=== PATIENT | female | born 1975 | race Two or more races ===

== ENCOUNTER 2024-03-08 08:47 | Emergency (ER) | payer MEDICAID, OTHER ==
[~2024-03-08] VITALS: Ht 160 cm; Wt 105.0 kg
[2024-03-08 09:41] VITALS: BP 122/62; PULSE 82; RESP 18; TEMP 98.2; O2SAT 98
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
[2024-03-08] MEDS: KETOROLAC TROMETH 60MG/2ML VIAL IM ONE (10:14)
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
--- NOTE | 2024-03-08 10:34 | DVH ---
CLINICAL INDICATION: hip pain TECHNIQUE: 1 radiographic views of the pelvis and 2 views of the right hip were obtained. Comparison: None FINDINGS/IMPRESSION: There is no evidence of acute fracture or dislocation. The visualized joint space is well maintained. The alignment is anatomical. There is no radiopaque foreign body.
[2024-03-08] MEDS ORDERED: CYCL-837 PO (10:44)
[2024-03-08] MEDS ORDERED: LIDO5PAD12 EX (10:44)
[2024-03-08] MEDS ORDERED: IBUP-1454 PO (10:44)
== END 2024-03-08 10:55 | disposition home or self-care (01) ==
LOC: ER 08:47
DX: S70.01XA Contusion of right hip, initial encounter (principal); S99.911A Unspecified injury of right ankle, initial encounter; M77.31 Calcaneal spur, right foot; V43.62XA Car passenger injured in collision with other type car in traffic accident, initial encounter; Y93.89 Activity, other specified; Y92.488 Other paved roadways as the place of occurrence of the external cause; Y99.8 Other external cause status
CPT/HCPCS: 73502; 73610; 73630; 96372; 99284; J1885

== ENCOUNTER 2024-05-13 12:58 | Inpatient (IN) | payer MEDICAID ==
[~2024-05-13] VITALS: Ht 160 cm; Wt 105.9 kg
[~2024-05-13 12:58] MED LIST: CYCL-837 PO; IBUP-1454 PO; LIDO5PAD12 EX
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
--- NOTE | 2024-05-13 13:16 | ECG ---
[facility] Test Date: 2024-05-13 Test Time: 13:15:17 Pat Name: ADAM PINEDO Department: ER Room: [address] [place] [address] Gender: F [employer]: ANDREEA : 1975 Requested By: VALORIE IBRAHIM Order Number: [id number] Reading MD: Malcom Brasher Measurements Intervals [place] Rate: 80 P: 27 [place]: 172 QRS: -14 QRSD: 91 T: -1 QT: 370 QTc: 427 Interpretive Statements Sinus rhythm Left atrial enlargement Low voltage, precordial leads Abnormal R-wave progression, late transition Borderline T abnormalities, diffuse leads Electronically Signed On 05-14-2024 17:45:30 PDT by Malcom Brasher Please click the below link to view image of tracing.
[2024-05-13 13:43] LABS: Basophils # (auto) 0.1 10 ^3/uL (0-0.2); Basophils % (auto) 0.8 % (0.0-2.0); Eosinophils # (auto) 0.2 10 ^3/uL (0-0.8); Eosinophils % (auto) 2.2 % (0.0-7.0); Hemoglobin 14.1 g/dL (12.2-16.2); Lymphocytes # (auto) 2.2 10 ^3/uL (0.4-5.4); Lymphocytes % (auto) 25.4 % (10.0-50.0); Mean Corpuscular Hgb Conc. 33.6 g/dL (32.0-36.0); Mean Corpuscular Volume 80.5 fL (80.0-100.0); Monocytes # (auto) 0.4 10 ^3/uL (0-1.3); Monocytes % (auto) 4.8 % (0.0-12.0); Neutrophils # (auto) 5.7 10 ^3/uL (1.6-8.6); Neutrophils % (auto) 66.8 % (37.0-80.0); Nucleated Red Blood Cells % 0.1 %; Platelet Count (auto) 328 10^3/uL (140-450); Red Blood Cells 5.22 10^6/uL (4.0-5.20); Red Cell Distribution Width 16.2 % (11.8-14.3); White Blood Cell 8.5 10^3/uL (4.4-10.8)
--- NOTE | 2024-05-13 13:49 | DVH ---
EXAM: XY CHEST PORTABLE Indication: pain Technique: Single frontal view of the chest was obtained Comparison: None FINDINGS: Lines and Tubes: None Lungs: No focal consolidation. Pleura: No effusion. No pneumothorax. Cardiomediastinal contours: Unremarkable Bones: No acute osseous abnormality. IMPRESSION: No acute cardiopulmonary disease.
[2024-05-13 13:54] LABS: Urine Bacteria None Seen /hpf (None Seen)
[2024-05-13 13:57] LABS: Alanine Aminotransferase 18 U/L (7-40); Albumin 4.5 g/dL (3.2-4.8); Anion Gap 9 (5-15); BUN/Creatinine Ratio 19.1 (10.0-20.0); Blood Urea Nitrogen 13 mg/dL (9-23); Calcium 10.4 mg/dL (8.7-10.4); Carbon Dioxide 29 mmol/L (20-31); Chloride 98 mmol/L (98-107); Lipase 20 U/L (12-53); Potassium 4.2 mmol/L (3.5-5.1); Sodium 136 mmol/L (136-145); Total Protein 7.1 g/dL (5.7-8.2)
[2024-05-13 13:58] LABS: Bilirubin, Total 0.5 mg/dL (0.2-1.0)
[2024-05-13 13:59] LABS: Alkaline Phosphatase 135 U/L (46-116); Aspartate Aminotransferase 11 U/L (13-40); Glucose 342 mg/dL (74-106); Magnesium 1.5 mg/dL (1.6-2.6)
[2024-05-13 14:03] LABS: Lactic Acid w/Reflex 2.2 mmol/L (0.4-2.0)
[2024-05-13 14:15] LABS: Urine Blood TRACE /uL (Negative); Urine Clarity Turbid (Clear); Urine Color Light-Yellow (Yellow); Urine Mucus FEW (None Seen); Urine Protein, UAD Negative (Negative); Urine Specific Gravity 1.013 (1.001-1.035); Urine Squamous Epithelial Cell FEW /hpf (<5); Urine Urobilinogen Normal (Negative); Urine WBC 9 /HPF (0-5); Urine pH 5.5 (5.0-9.0)
--- NOTE | 2024-05-13 14:34 | DVH ---
Procedure: CT CT AB PEL WO CON-NO ORAL OR IV 05/13/2024 01:17 PM Indication: epig pain n/d Comparison Study: None Technique: Axial images were obtained and reformatted in coronal and sagittal planes. All CT scans at this medical facility are performed using dose modulation techniques as appropriate to a performed e xam including the following: Automated exposure control was utilized; adjustment of the MA and/or KV according to patient size; and use of iterative reconstruction technique. CT Dose: CTDI volume is 25. 64 mGy. Dose-length product is 1320.53 mGy*cm FINDINGS: Lower Chest: Unremarkable. Hepatobiliary: Hepatomegaly, 20 cm in craniocaudal. Hepatic steatosis with areas of focal fatty spari ng. Gallbladder is surgically absent. Spleen: Unremarkable. Pancreas: Unremarkable. Adrenal Glands: Unremarkable. tract: The kidneys are normal in size bilaterally without hydronephrosis or nephrolithiasis. The u rinary bladder is unremarkable. GI tract: The stomach is grossly normal in appearance. No evidence of small bowel obstruction. The la rge bowel is unremarkable. The appendix is normal. Lymphatics: No mesenteric, retroperitoneal or periportal lymphadenopathy. Vasculature: The abdominal aorta is normal in in caliber. Pelvic Organs: Anteverted uterus. A 2.8 cm left ovarian cyst is seen. Bones/soft tissues: Small fat containing umbilical and supraumbilical hernias. Degenerative disc dis ease and posterior facet arthropathy at L5-S1. Bilateral L5 pars defects without significant spondylo listhesis. Other: None. IMPRESSION: 1. No acute abnormality noted in the abdomen or pelvis.Hepatomegaly 2. , hepatic steatosis with areas of focal fatty sparing. Gallbladder surgically absent.
[2024-05-13] MEDS: MAGNESIUM SULFATE 1GM/100ML 100 ML IV ONE (15:14)
[2024-05-13] MEDS: PANTOPRAZOLE 40 MG/10 ML VIAL INJ IV ONE (15:14)
[2024-05-13] MEDS: ONDANSETRON HCL 4 MG/2 ML VIAL IV ONE (15:14)
[2024-05-13] MEDS: SODIUM CHLORIDE 0.9% 1,000 ML IV ONE ×3 (15:14→22:30)
[2024-05-13 15:24] VITALS: PULSE 82; RESP 16; O2SAT 98
[2024-05-13] MEDS: LIDOCAINE VISCOUS 2% 15ML UD PO ONE (16:15)
[2024-05-13] MEDS: cefTRIAXone 1GM/50ML D5W 50 ML IV ONE (16:15)
[2024-05-13] MEDS: HYDROcodone-ACET 5/325MG TAB PO ONE (16:17)
[2024-05-13 19:27] LABS: Lactic Acid w/Reflex 2.4 mmol/L (0.4-2.0)
[2024-05-13] MEDS ORDERED: DEXTROSE (50%) 50ML SYRG IV PRN (22:30)
--- NOTE | 2024-05-13 22:39 | DVHHPRES ---
History of Present Illness Resident Creating Document: AMAURY PEREZ RESDIENT History of Present Illness 48-year-old female with past medical history of diabetes came to the hospital due to abdominal pain since 3 days. Pain is localized at epigastric area, constant, radiating to the back, 7/10, with no clear exacerbating or relieving factor. He also reports nausea, watery diarrhea, palpitation and polydipsia. She denies fever, chest pain, shortness of breath. PMHx: Diabetes type 2 and sciatalgia PSHx: Cholecystectomy and tubal ligation Family history: Not contributory Social history: Lives with the at home, denies smoking or any other drug use Home medication: Ibuprofen, previously was using metformin for the diabetes (due to allergic reaction, hives, stopped taking) Allergic history: Metformin Review of Systems Review of Systems General: patient denies fever, fatigue, weaknes, sweating, any recent changes in appetite and weight HEENT: No headaches, visiual changes, hearing loss, tinnitus, nasal congestion and discharge, and sore throat. Cardiovascular: Reports palpitation Respiratory: No cough, and wheezing. Gastrointestinal: Reports abdominal pain, nausea, diarrhea Genitourinary: Reports dysuria and polydipsia Endocrine: No heat or cold intolerance, polydipsia, polyuria, and polyphagia. Neurological: No dizziness, extremity weakness and numbness, tremors, gait disturbance, seizures, and memory impairment. Psychiatric: Denies depression, anxiety,or insomnia. Musculoskeletal: Denies neck pain, stiffness and swelling, back pain, muscle weakness, joint pain, stiffness, swelling, or limited range of motion. Skin: No rashes, itching, skin lesion, changes in hair, nail, skin texture and breast. Hematologic/Lymphatic: Denies easy bruising, bleeding tendencies, or lymph node enlargement. Allergies: Coded Allergies: NO KNOWN ALLERGIES (Unverified , 03/08/24) Exam Vital Signs Vital Signs Date Time Temp Pulse Resp B/P (MAP) Pulse Ox O2 Delivery O2 Flow Rate FiO2 05/13/24 20:00 97.7 76 18 113/43 (66) 92 97.7 05/13/24 15:24 Room Air* 0 21 Exam General Appearance: Alert, Oriented X3, Cooperative, No acute distress HEENT: Atraumatic, PERRLA, EOMI, Mucous membrane moist/pink Respiratory: Clear to auscultation, Normal air movement Cardiovascular: Regular rate, Normal S1, Normal S2, No murmurs, no chest wall tenderness Abdominal: Mild epigastric and suprapubic tenderness Extremities: No clubbing, No cyanosis, No edema, Normal pulses, No tenderness/swelling Skin: No rashes, No breakdown, No significant lesion Neuro: Normal gait, Normal speech, Strength at 5/5 X4 ext, Normal tone, Sensation intact, Cranial nerves 3-12 NL, Reflexes 2+ Psych/Mental Status: Mental status NL, Mood NL Labs/Xrays Labs Test 05/13/24 18:22 05/13/24 17:10 05/13/24 13:20 05/13/24 13:15 Range/Units Lactic Acid Level 2.4 *H 0.4-2.0 mmol/L Troponin I High Sensitivity < 3 L </=34 ng/L White Blood Count 8.5 4.4-10.8 10^3/uL Red Blood Count 5.22 H 4.0-5.20 10^6/uL Hemoglobin 14.1 12.2-16.2 g/dL Hematocrit 42.0 36.0-46.0 % Mean Corpuscular Volume 80.5 80.0-100.0 fL Mean Corpuscular Hemoglobin 27.0 L 28.0-32.0 pg Mean Corpuscular Hemoglobin Concent 33.6 32.0-36.0 g/dL Red Cell Distribution Width 16.2 H 11.8-14.3 % Platelet Count 328 140-450 10^3/uL Mean Platelet Volume 7.9 6.9-10.8 fL Neutrophils (%) (Auto) 66.8 37.0-80.0 % Lymphocytes (%) (Auto) 25.4 10.0-50.0 % Monocytes (%) (Auto) 4.8 0.0-12.0 % Eosinophils (%) (Auto) 2.2 0.0-7.0 % Basophils (%) (Auto) 0.8 0.0-2.0 % Neutrophils # (Auto) 5.7 1.6-8.6 10 ^3/uL Lymphocytes # (Auto) 2.2 0.4-5.4 10 ^3/uL Monocytes # (Auto) 0.4 0-1.3 10 ^3/uL Eosinophils # (Auto) 0.2 0-0.8 10 ^3/uL Basophils # (Auto) 0.1 0-0.2 10 ^3/uL Nucleated Red Blood Cells 0.1 % Sodium Level 136 136-145 mmol/L Potassium Level 4.2 3.5-5.1 mmol/L Chloride Level 98 98-107 mmol/L Carbon Dioxide Level 29 20-31 mmol/L Anion Gap 9 5-15 Blood Urea Nitrogen 13 9-23 mg/dL Creatinine 0.68 0.550-1.02 mg/dL Glomerular Filtration Rate Calc 108 >90 mL/min BUN/Creatinine Ratio 19.1 10.0-20.0 Serum Glucose 342 H 74-106 mg/dL Calcium Level 10.4 8.7-10.4 mg/dL Magnesium Level 1.5 L 1.6-2.6 mg/dL Total Bilirubin 0.5 0.2-1.0 mg/dL Aspartate Amino Transferase (AST) 11 L 13-40 U/L Alanine Aminotransferase (ALT) 18 7-40 U/L Alkaline Phosphatase 135 H 46-116 U/L Total Protein 7.1 5.7-8.2 g/dL Albumin 4.5 3.2-4.8 g/dL Lipase 20 12-53 U/L Urine Color Light-yellow Yellow Urine Clarity Turbid H Clear Urine pH 5.5 5.0-9.0 Urine Specific [place] 1.013 1.001-1.035 Urine Protein Negative Negative Urine Ketones Negative Negative Urine Blood Trace H Negative /uL Urine Nitrite Negative Negative Urine Bilirubin Negative Negative Urine Urobilinogen Normal Negative mg/dL Urine Leukocyte Esterase 2+ Negative /uL Urine RBC 7 0 - 4 /hpf Urine Microscopic WBC 9 H 0-5 /HPF Urine Squamous Epithelial Cells Few <5 /hpf Urine Bacteria None seen None Seen /hpf Urine Mucus Few None Seen Urine Glucose 3+ H Normal mg/dL Urine Test Negative Negative Assessment/Plan Assessment/Plan Assessment: Abdominal pain, likely due to gastroenteritis Complicated UTI Uncontrolled diabetes type 2, with hyperglycemia Hepatomegaly, hepatic steatosis Lactic acidosis Dyslipidemia Hypomagnesemia Plan: Empiric antibiotic, ceftriaxone IV fluid Insulin Lantus 10 units, insulin regular according to moderate sliding scale Check urine culture, UDS, and stool study Supplemented magnesium Atorvastatin DIET: Diabetic diet DVT PROPHYLAXIS: Lovenox GI PROPHYLAXIS:: Protonix CODE STATUS: Goal of care for more than 18 minutes, full code DISPOSITION: Med/surge Patient's status and plan discussed with the patient. Case discussed with Dr. Aguayo. Plan discussed with: Patient, Spouse, Other Date of Service: May 13, 2024 Billing Provider: DELFINA AGUAYO MD Common Visit Codes: [id number] INP/OBS CARE (HIGH) ADRIELJUNIORADRIEL UGALDEBrennon CASTORENA May 13, 2024 22:39 DELFINA AGUAYO MD May 16, 2024 10:48
[2024-05-13 23:19] LABS: LDL Cholesterol 144 mg/dL (< 100); Triglycerides 177 mg/dL (< 150)
[2024-05-13 23:20] LABS: HDL Cholesterol 54 mg/dL (40-59)
[2024-05-13 23:22] LABS: Cholesterol 206 mg/dL (< 200)
[2024-05-14] MEDS: HYDROcodone-ACET 5/325MG TAB PO PRN (01:59)
[2024-05-14] MEDS: ONDANSETRON HCL 4 MG/2 ML VIAL IV PRN (02:00)
[2024-05-14] MEDS: INSULIN LANTUS (GLARGINE) 1 /0.01ml (100units/ml) SC ONE (02:40)
[2024-05-14] MEDS: MAGNESIUM SULFATE 1GM/100ML 100 ML IV SCH (02:43)
[2024-05-14] MEDS: SODIUM CHLORIDE 0.9% 1,000 ML IV ONE ×2 (02:43→04:39)
[2024-05-14] MEDS: cefTRIAXone 1GM/50ML D5W 50 ML IV ONE (02:44)
[2024-05-14] MEDS: ATORVASTATIN 20 MG TAB PO ONE (02:44)
[2024-05-14 03:50] LABS: Basophils # (auto) 0.1 10 ^3/uL (0-0.2); Basophils % (auto) 0.6 % (0.0-2.0); Eosinophils # (auto) 0.3 10 ^3/uL (0-0.8); Eosinophils % (auto) 3.2 % (0.0-7.0); Hematocrit 41.3 % (36.0-46.0); Hemoglobin 13.6 g/dL (12.2-16.2); Lymphocytes # (auto) 2.2 10 ^3/uL (0.4-5.4); Lymphocytes % (auto) 24.6 % (10.0-50.0); Mean Corpuscular Hemoglobin 26.5 pg (28.0-32.0); Mean Corpuscular Hgb Conc. 32.8 g/dL (32.0-36.0); Mean Corpuscular Volume 80.8 fL (80.0-100.0); Monocytes # (auto) 0.7 10 ^3/uL (0-1.3); Monocytes % (auto) 7.5 % (0.0-12.0); Neutrophils # (auto) 5.7 10 ^3/uL (1.6-8.6); Neutrophils % (auto) 64.1 % (37.0-80.0); Nucleated Red Blood Cells % 0.1 %; Platelet Count (auto) 278 10^3/uL (140-450); Red Blood Cells 5.12 10^6/uL (4.0-5.20); Red Cell Distribution Width 16.4 % (11.8-14.3); White Blood Cell 8.9 10^3/uL (4.4-10.8)
[2024-05-14 04:04] LABS: Alanine Aminotransferase 15 U/L (7-40); Albumin 4.1 g/dL (3.2-4.8); Anion Gap 10 (5-15); BUN/Creatinine Ratio 12.1 (10.0-20.0); Bilirubin, Total 0.4 mg/dL (0.2-1.0); Calcium 9.7 mg/dL (8.7-10.4); Carbon Dioxide 25 mmol/L (20-31); Chloride 102 mmol/L (98-107); Magnesium 2.1 mg/dL (1.6-2.6); Potassium 4.1 mmol/L (3.5-5.1); Sodium 137 mmol/L (136-145); Total Protein 6.9 g/dL (5.7-8.2)
[2024-05-14 04:11] LABS: Lactic Acid w/Reflex 2.2 mmol/L (0.4-2.0)
[2024-05-14 04:12] LABS: Alkaline Phosphatase 118 U/L (46-116); Aspartate Aminotransferase 10 U/L (13-40); Blood Urea Nitrogen 8 mg/dL (9-23); Glucose 370 mg/dL (74-106)
[2024-05-14 04:17] LABS: INR 0.96 (0.9-1.15); Partial Thromboplastin Time 26.9 SEC (24.5-34.5); Prothrombin Time 10.2 sec (9.3-11.8)
[2024-05-14] MEDS: MAGNESIUM SULFATE 1GM/100ML 100 ML IV ONE (04:41)
[2024-05-14] MEDS: InsuLIN REG 1unit/0.01ml Soln (100units/ml) SC SCH ×2 (05:15→22:00)
[2024-05-14] MEDS: INSULIN LANTUS (GLARGINE) 1 /0.01ml (100units/ml) SC SCH (05:36)
[2024-05-14] MEDS: ACCU-CHEK COMFORT CURVE STRIP VI SCH (05:36)
[2024-05-14 08:30] VITALS: BP 119/71; PULSE 72; RESP 16; TEMP 99.1; O2SAT 93
[2024-05-14] MEDS: PANTOPRAZOLE 40 MG/10 ML VIAL INJ IV SCH (09:09)
[2024-05-14] MEDS: ENOXAPARIN SOD 40 MG/0.4 ML SYRINGE SC SCH (09:09)
[2024-05-14 13:00] VITALS: BP 122/77; PULSE 72; RESP 16; TEMP 97.7; O2SAT 100
--- NOTE | 2024-05-14 13:43 | DVHPN2 ---
Reviewed: Care Plan, H&P, Labs, Medications, Previous Orders, Radiology Changes from previous H/P or p: No Changes Objective Vitals Vital Signs Date Time Temp Pulse Resp B/P (MAP) Pulse Ox O2 Delivery O2 Flow Rate FiO2 05/14/24 13:00 97.7 72 16 122/77 (92) 100 97.7 05/13/24 15:24 Room Air* 0 21 Intake/Output Intake and Output 05/14/24 07:00 Intake Total 2400 ml Balance 2400 ml Intake Oral 250 ml IV Total 2150 ml Medications Current Medications Medications Dose Ordered Sig/Della Route Start Time Stop Time Status Last Admin Dose Admin Acetaminophen 650 mg Q6HP PRN PO 05/13/24 22:30 Acetaminophen/ Hydrocodone Bitart 1 tab Q4HP PRN PO 05/13/24 22:30 05/14/24 01:59 1 TAB Ondansetron HCl 4 mg Q4HP PRN IV 05/13/24 22:30 05/14/24 02:00 4 MG Enoxaparin Sodium 40 mg DAILY SC 05/14/24 10:00 05/14/24 09:09 40 MG Insulin Glargine 10 units QAM SC 05/14/24 07:00 Diagnostic Test (Pha) 1 strip ACHS 05/14/24 07:00 05/14/24 11:18 1 STRIP Insulin Human Regular AC SC 05/14/24 07:00 05/14/24 11:51 4 UNITS Insulin Human Regular HS SC 05/14/24 22:00 Dextrose 50 ml UD PRN IV 05/13/24 22:30 Ceftriaxone Sodium 50 ml @ 100 mls/hr Q24H IV 05/14/24 21:00 Pantoprazole Sodium 40 mg DAILY IV 05/14/24 10:00 05/14/24 09:09 40 MG Atorvastatin Calcium 40 mg HS PO 05/14/24 22:00 Laboratory Results Laboratory Tests 05/14/24 03:27 Chemistry Test 05/14/24 03:27 Albumin 4.1 g/dL (3.2-4.8) Calcium Level 9.7 mg/dL (8.7-10.4) Magnesium Level 2.1 mg/dL (1.6-2.6) Total Protein 6.9 g/dL (5.7-8.2) Coagulation Test 05/14/24 03:27 Prothrombin Time 10.2 sec (9.3-11.8) Prothrombin Time INR 0.96 (0.9-1.15) Activated Partial Thromboplast Time 26.9 SEC (24.5-34.5) LFT Test 05/14/24 03:27 Alanine Aminotransferase (ALT) 15 U/L (7-40) Alkaline Phosphatase 118 U/L (46-116) H Aspartate Amino Transferase (AST) 10 U/L (13-40) L Total Bilirubin 0.4 mg/dL (0.2-1.0) Urinalysis Test 05/13/24 13:15 Urine Color Light-yellow (Yellow) Urine Clarity Turbid (Clear) H Urine pH 5.5 (5.0-9.0) Urine Specific [place] 1.013 (1.001-1.035) Urine Protein Negative (Negative) Urine Ketones Negative (Negative) Urine Blood Trace /uL (Negative) H Urine Nitrite Negative (Negative) Urine Bilirubin Negative (Negative) Urine Urobilinogen Normal mg/dL (Negative) Urine Leukocyte Esterase 2+ /uL (Negative) Urine RBC 7 /hpf (0 - 4) Urine Microscopic WBC 9 /HPF (0-5) H Urine Squamous Epithelial Cells Few /hpf (<5) Urine Bacteria None seen /hpf (None Seen) Urine Mucus Few (None Seen) Urine Glucose 3+ mg/dL (Normal) H Urine Test Negative (Negative) Microbiology Microbiology Date/Time Source Procedure Growth Status 05/13/24 13:15 Voided Urine Urine Culture - Preliminary Resulted Labs and/or images reviewed: Labs reviewed by me, Image(s) reviewed by me Assessment/Plan Assessment/Plan Acute abdominal pain with nausea and vomiting Acute hyperglycemia: With blood glucose 342: Aggressive insulin sliding scale Diabetes A1c 12.6: Counseling Acute metabolic encephalopathy Lactic acidosis Hypercholesterolemia cholesterol 206: Lipitor UTI: Urine cultures Rocephin Time Spent [address] abdomen pelvis without contrast negative Plan discussed with: Patient Date of Service: May 14, 2024 Billing Provider: KAELA COLLINS MD Common Visit Codes: [id number] INP/OBS CARE(HIGH) KAELA COLLINS MD May 14, 2024 13:43
[2024-05-14] MEDS: ACETAMINOPHEN 325 MG TAB PO PRN (16:42)
[2024-05-14 17:50] VITALS: BP 129/84; PULSE 73; RESP 18; O2SAT 100
[2024-05-14 21:00] VITALS: BP 102/60; PULSE 75; RESP 18; TEMP 97.8; O2SAT 95
[2024-05-14] MEDS: ATORVASTATIN 20 MG TAB PO SCH (22:00)
[2024-05-14] MEDS: cefTRIAXone 1GM/50ML D5W 50 ML IV SCH (22:01)
[2024-05-15 01:00] VITALS: BP 111/67; PULSE 77; RESP 17; TEMP 98; O2SAT 94
[2024-05-15] MEDS: HYDROcodone-ACET 5/325MG TAB PO ONE (04:14)
[2024-05-15 05:00] VITALS: BP 114/66; PULSE 76; RESP 17; TEMP 97.4; O2SAT 98
[2024-05-15 08:59] VITALS: BP 132/82; PULSE 70; RESP 20; TEMP 98; O2SAT 96
--- NOTE | 2024-05-15 11:52 | DVHPN2 ---
Reviewed: Care Plan, H&P, Labs, Medications, Previous Orders, Radiology Changes from previous H/P or p: No Changes Objective Vitals Vital Signs Date Time Temp Pulse Resp B/P (MAP) Pulse Ox O2 Delivery O2 Flow Rate FiO2 05/15/24 08:59 98.0 70 20 132/82 (99) 96 98.0 05/14/24 20:00 Room Air* 0 21 Intake/Output Intake and Output 05/15/24 07:00 Intake Total 550 ml Balance 550 ml Intake Oral 500 ml IV Total 50 ml # Voids 1 Medications Current Medications Medications Dose Ordered Sig/Della Route Start Time Stop Time Status Last Admin Dose Admin Acetaminophen 650 mg Q6HP PRN PO 05/13/24 22:30 05/15/24 08:02 650 MG Acetaminophen/ Hydrocodone Bitart 1 tab Q4HP PRN PO 05/13/24 22:30 05/15/24 11:25 1 TAB Ondansetron HCl 4 mg Q4HP PRN IV 05/13/24 22:30 05/14/24 02:00 4 MG Enoxaparin Sodium 40 mg DAILY SC 05/14/24 10:00 05/15/24 08:02 40 MG Insulin Glargine 10 units QAM SC 05/14/24 07:00 05/15/24 06:20 10 UNITS Diagnostic Test (Pha) 1 strip ACHS 05/14/24 07:00 05/15/24 11:24 1 STRIP Insulin Human Regular AC SC 05/14/24 07:00 05/15/24 11:25 4 UNITS Insulin Human Regular HS SC 05/14/24 22:00 05/14/24 22:00 4 UNITS Dextrose 50 ml UD PRN IV 05/13/24 22:30 Ceftriaxone Sodium 50 ml @ 100 mls/hr Q24H IV 05/14/24 21:00 05/14/24 22:01 100 MLS/HR Pantoprazole Sodium 40 mg DAILY IV 05/14/24 10:00 05/15/24 08:01 40 MG Atorvastatin Calcium 40 mg HS PO 05/14/24 22:00 05/14/24 22:00 40 MG Laboratory Results Laboratory Tests 05/14/24 03:27 Urinalysis Test 05/13/24 13:15 Urine Color Light-yellow (Yellow) Urine Clarity Turbid (Clear) H Urine pH 5.5 (5.0-9.0) Urine Specific [place] 1.013 (1.001-1.035) Urine Protein Negative (Negative) Urine Ketones Negative (Negative) Urine Blood Trace /uL (Negative) H Urine Nitrite Negative (Negative) Urine Bilirubin Negative (Negative) Urine Urobilinogen Normal mg/dL (Negative) Urine Leukocyte Esterase 2+ /uL (Negative) Urine RBC 7 /hpf (0 - 4) Urine Microscopic WBC 9 /HPF (0-5) H Urine Squamous Epithelial Cells Few /hpf (<5) Urine Bacteria None seen /hpf (None Seen) Urine Mucus Few (None Seen) Urine Glucose 3+ mg/dL (Normal) H Urine Test Negative (Negative) Microbiology Microbiology Date/Time Source Procedure Growth Status 05/13/24 17:29 Blood Blood Culture - Preliminary NO GROWTH AFTER 24 HOURS OF INCUBATION. Resulted 05/13/24 13:15 Voided Urine Urine Culture - Preliminary Resulted Labs and/or images reviewed: Labs reviewed by me, Image(s) reviewed by me Assessment/Plan Assessment/Plan Acute abdominal pain with nausea and vomiting Acute hyperglycemia: With blood glucose 342: Aggressive insulin sliding scale Uncontrolled Diabetes A1c 12.6: Counseling Acute metabolic encephalopathy Lactic acidosis Hypercholesterolemia cholesterol 206: Lipitor UTI: Urine cultures, treated with Rocephin Time Spent [address] abdomen pelvis without contrast negative Noncompliance patient discontinued glipizide and does not want insulin Discussed in detail about the complications of uncontrolled diabetes in the presence of [place] Ay[place] Patient Wants to be discharged home today Plan discussed with: Patient Date of Service: May 15, 2024 Billing Provider: KAELA COLLINS MD Common Visit Codes: [id number] INP/OBS CARE(HIGH) KAELA COLLINS MD May 15, 2024 11:52
[2024-05-15] MEDS ORDERED: CIPR-173 PO (11:54)
[2024-05-15] MEDS ORDERED: GLIP5TAB21 PO (11:54)
--- NOTE | 2024-05-15 11:58 | DVHDS2 ---
Discharge Summary Date of Admission May 13, 2024 at 22:30 Date of Discharge: May 15, 2024 Admitting Diagnosis Abdominal pain nausea and vomiting Wounds: None Labs/Diagnostic Data: Laboratory Results Test 05/15/24 11:16 05/14/24 05:44 05/14/24 03:27 05/13/24 17:10 POC Glucose 173 mg/dl (70-106) Lactic Acid Level 2.2 mmol/L (0.4-2.0) White Blood Count 8.9 10^3/uL (4.4-10.8) Red Blood Count 5.12 10^6/uL (4.0-5.20) Hemoglobin 13.6 g/dL (12.2-16.2) Hematocrit 41.3 % (36.0-46.0) Mean Corpuscular Volume 80.8 fL (80.0-100.0) Mean Corpuscular Hemoglobin 26.5 pg (28.0-32.0) Mean Corpuscular Hemoglobin Concent 32.8 g/dL (32.0-36.0) Red Cell Distribution Width 16.4 % (11.8-14.3) Platelet Count 278 10^3/uL (140-450) Mean Platelet Volume 8.1 fL (6.9-10.8) Neutrophils (%) (Auto) 64.1 % (37.0-80.0) Lymphocytes (%) (Auto) 24.6 % (10.0-50.0) Monocytes (%) (Auto) 7.5 % (0.0-12.0) Eosinophils (%) (Auto) 3.2 % (0.0-7.0) Basophils (%) (Auto) 0.6 % (0.0-2.0) Neutrophils # (Auto) 5.7 10 ^3/uL (1.6-8.6) Lymphocytes # (Auto) 2.2 10 ^3/uL (0.4-5.4) Monocytes # (Auto) 0.7 10 ^3/uL (0-1.3) Eosinophils # (Auto) 0.3 10 ^3/uL (0-0.8) Basophils # (Auto) 0.1 10 ^3/uL (0-0.2) Nucleated Red Blood Cells 0.1 % Prothrombin Time 10.2 sec (9.3-11.8) Prothrombin Time INR 0.96 (0.9-1.15) Activated Partial Thromboplast Time 26.9 SEC (24.5-34.5) Sodium Level 137 mmol/L (136-145) Potassium Level 4.1 mmol/L (3.5-5.1) Chloride Level 102 mmol/L (98-107) Carbon Dioxide Level 25 mmol/L (20-31) Anion Gap 10 (5-15) Blood Urea Nitrogen 8 mg/dL (9-23) Creatinine 0.66 mg/dL (0.550-1.02) Glomerular Filtration Rate Calc 109 mL/min (>90) BUN/Creatinine Ratio 12.1 (10.0-20.0) Serum Glucose 370 mg/dL (74-106) Calcium Level 9.7 mg/dL (8.7-10.4) Magnesium Level 2.1 mg/dL (1.6-2.6) Total Bilirubin 0.4 mg/dL (0.2-1.0) Aspartate Amino Transferase (AST) 10 U/L (13-40) Alanine Aminotransferase (ALT) 15 U/L (7-40) Alkaline Phosphatase 118 U/L (46-116) Total Protein 6.9 g/dL (5.7-8.2) Albumin 4.1 g/dL (3.2-4.8) Troponin I High Sensitivity < 3 ng/L (</=34) Test 05/13/24 13:20 05/13/24 13:15 Hemoglobin A1c 12.6 % A1C (<5.7) Triglycerides Level 177 mg/dL (< 150) Cholesterol Level 206 mg/dL (< 200) LDL Cholesterol 144 mg/dL (< 100) HDL Cholesterol 54 mg/dL (40-59) Lipase 20 U/L (12-53) Urine Color Light-yellow (Yellow) Urine Clarity Turbid (Clear) Urine pH 5.5 (5.0-9.0) Urine Specific [place] 1.013 (1.001-1.035) Urine Protein Negative (Negative) Urine Ketones Negative (Negative) Urine Blood Trace /uL (Negative) Urine Nitrite Negative (Negative) Urine Bilirubin Negative (Negative) Urine Urobilinogen Normal mg/dL (Negative) Urine Leukocyte Esterase 2+ /uL (Negative) Urine RBC 7 /hpf (0 - 4) Urine Microscopic WBC 9 /HPF (0-5) Urine Squamous Epithelial Cells Few /hpf (<5) Urine Bacteria None seen /hpf (None Seen) Urine Mucus Few (None Seen) Urine Glucose 3+ mg/dL (Normal) Urine Test Negative (Negative) Other Laboratory Tests 05/14/24 03:27 Brief Hx & Hospital Course: 48-year-old female with a history of type 2 diabetes on glipizide discontinued the medication few months ago because of lack of insurance. Came in complaining of abdominal pain nausea and vomiting CT abdomen pelvis without contrast negative urine showed infection treated with Rocephin cultures mixed blood sugar was high 342 A1c 12.6 consistent with a uncontrolled diabetes patient is noncompliant with the treatment at the time of discharge patient is afebrile no vomiting no abdominal pain and wants to go home. Blood sugars in the range of 150 at the time of discharge. Discharged home on glipizide and Cipro Educated about the complications of uncontrolled diabetes Prescription given for glucometer test strips and lancets Consults/Reason for consult None Operations or Procedures CT abdomen pelvis without contrast Condition at Discharge: Fair Final Diagnosis/Problems List Acute abdominal pain with nausea and vomiting Acute hyperglycemia: With blood glucose 342: Aggressive insulin sliding scale Uncontrolled Diabetes A1c 12.6: Counseling Acute metabolic encephalopathy Lactic acidosis Hypercholesterolemia cholesterol 206: Lipitor UTI: Urine cultures, treated with Rocephin Time Spent [address] abdomen pelvis without contrast negative Noncompliance patient discontinued glipizide and does not want insulin Discharge Disposition: Home Discharge Instruct/Medications Diet: Consistent carbohydrate Activity: Light activity Follow Up/Referral: Follow up With your primary Dr in one week Check Blood sugar 3 times a day Medications: Glipizide Cipro Transmitted to pharmacy 39 (Time Taken For discharge summary 39 minutes) Discharge Statement: "Patient was advised to return to the ER or call 911 if any headaches, dizziness, shortness of breath, chest pain, abdominal pain, bleeding, fevers, or worsening of medical condition. Patient was counseled about treatment plan, medications, possible side effects, patientverbalized understanding. All questions were answered to the best of my ability. This discharge took greater then 30 minutes in planning, reviewing documentation, counseling the patient, and discussing with other team members." ASSESSMENT ASSESSMENT Hospital Course Improved Assessment Acute abdominal pain with nausea and vomiting Acute hyperglycemia: With blood glucose 342: Aggressive insulin sliding scale Uncontrolled Diabetes A1c 12.6: Counseling Acute metabolic encephalopathy Lactic acidosis Hypercholesterolemia cholesterol 206: Lipitor UTI: Urine cultures, treated with Rocephin Time Spent [address] abdomen pelvis without contrast negative Noncompliance patient discontinued glipizide and does not want insulin Date of Service: May 15, 2024 Billing Provider: KAELA COLLINS MD Common Visit Codes: [id number] DISCH DAY >30min KAELA COLLINS MD May 15, 2024 11:58
[2024-05-15 12:35] VITALS: BP 113/83; PULSE 75; RESP 16; TEMP 97.9; O2SAT 93
[2024-05-15 13:33] VITALS: TEMP 36.6
== END 2024-05-15 14:20 | disposition home or self-care (01) | DRG 248 ==
LOC: ER 12:58 → OVERFLOW 22:30 → WEST WING 05-14 18:03
PROVIDERS: ADMIT Family Medicine; ATTEND Family Medicine
DX: A04.9 Bacterial intestinal infection, unspecified (principal); G93.41 Metabolic encephalopathy; E87.20 Acidosis, unspecified; N30.01 Acute cystitis with hematuria; K76.0 Fatty (change of) liver, not elsewhere classified; E11.65 Type 2 diabetes mellitus with hyperglycemia; E83.42 Hypomagnesemia; E78.5 Hyperlipidemia, unspecified; E78.00 Pure hypercholesterolemia, unspecified; Z79.84 Long term (current) use of oral hypoglycemic drugs; Z90.49 Acquired absence of other specified parts of digestive tract; Z91.199 Patient's noncompliance with other medical treatment and regimen due to unspecified reason; Z79.899 Other long term (current) drug therapy
CPT/HCPCS: 36415; 71045; 74176; 80053; 80061; 81001; 81025; 82962; 83036; 83605; 83690; 83735; 84484; 85025; 85610; 85730; 87040; 87086; 93005; 96361; 96374; 96375; 99291; G0378; J1815; J2405; J2470